=== PATIENT | male | born 1970 | race Caucasian/White ===

== ENCOUNTER 2017-05-02 17:03 | Emergency (ER) | payer BC ==
[~2017-05-02] VITALS: Ht 185.4 cm; Wt 110.1 kg
[2017-05-02 18:24] VITALS: BP 145/92
== END 2017-05-02 18:24 | disposition home or self-care (01) ==
LOC: EME 17:03
DX: M54.6 Pain in thoracic spine (principal); M54.5 Low back pain
CPT/HCPCS: 99281; 99284; J1885